=== PATIENT | female | born 1985 ===

== ENCOUNTER 2021-01-22 15:00 | Inpatient (IN) | payer OTHER ==
[2021-01-22 16:13] VITALS: BMI 45.2
[2021-01-22] MEDS ORDERED: ELECTROLYTE-148 SOLN 1,000 ML IV SCH ×2 (16:15→19:00)
[2021-01-22] MEDS ORDERED: LABETALOL HCL 100 MG TABLET (FP) PO ONE (16:20)
[2021-01-22] MEDS ORDERED: BUTORPHANOL TARTRATE 2 MG/ML VIAL IVPB ONE (16:20)
[2021-01-22] MEDS ORDERED: PROMETHAZINE HCL 25 MG/1 ML VIAL IVPB ONE (16:20)
[2021-01-22] MEDS ORDERED: AMPICILLIN - 2 GM in SODIUM CHLORIDE 100 ML IVPB ONE (16:25)
[2021-01-22] MEDS ORDERED: BUTORPHANOL TARTRATE 2 MG/ML VIAL ONE (16:30)
[2021-01-22] MEDS ORDERED: PROMETHAZINE HCL 25 MG/1 ML VIAL ONE (16:30)
[2021-01-22] MEDS ORDERED: LABETALOL HCL 100 MG TABLET (FP) ONE (16:30)
[2021-01-22] MEDS ORDERED: AMPICILLIN SODIUM 2 GM VIAL ONE (16:30)
[2021-01-22 16:37] LABS: BASO % 0.6 % (0-2.0); EOS % 0.1 % (0-4.5); HEMOGLOBIN 12.7 GM/dL (10.7-15.3); LYMPH % 10.2 % (8-40); MCH 30.1 pg (25.7-33.7); MCHC 34.4 g/dl (32.0-36.0); MEAN CELL VOLUME 87.4 fl (80-96); MEAN PLT VOLUME 9.1 fl (7.5-11.1); MONO % 5.1 % (3.8-10.2); PLATELET COUNT 220 10^3/uL (134-434); RBC 4.23 M/mm3 (3.60-5.2); RDW 14.3 % (11.6-15.6); WHITE BLOOD COUNT 12.9 K/mm3 (4.0-10.0)
[2021-01-22 16:42] LABS: INR 0.9 (0.83-1.09); PROTHROMBIN TIME (PATIENT) 10.9 SEC (9.7-13.0)
[2021-01-22 16:45] LABS: ACTIVATED PTT 29.6 SECONDS (25.2-36.5)
[2021-01-22 17:03] LABS: CALCIUM 9.1 mg/dL (8.5-10.1)
[2021-01-22 17:04] LABS: BLOOD UREA NITROGEN 8.2 mg/dL (7-18)
[2021-01-22 17:07] LABS: CREATININE 0.6 mg/dL (0.55-1.3)
[2021-01-22] MEDS: AMPICILLIN - 1 GM in SODIUM CHLORIDE 100 ML IVPB SCH ×2 (17:15→21:00)
[2021-01-22 17:31] LABS: SYPHILIS W/ RPR CONF NON-REACTIVE (NONREACTIVE)
[2021-01-22 18:00] LABS: HIV INTERPRETATION NEGATIVE (NEGATIVE)
[2021-01-22] MEDS ORDERED: OXYTOCIN 30 UNITS in 0.9% NS 30 UNIT/500 ML INFUS.BAG IVPB SCH (19:15)
[2021-01-22] MEDS ORDERED: PCA PUMP NR ONE (19:16)
[2021-01-22] MEDS ORDERED: FENTANYL/BUPIVACAINE/NS/PF - PCEA - 50 ML DISP.SYRIN EP ONE (19:17)
[2021-01-22] MEDS: FENTANYL/BUPIVACAINE/NS/PF - PCEA - 50 ML DISP.SYRIN EP SCH (19:50)
[2021-01-22] MEDS ORDERED: NALOXONE HCL 0.4 MG/ML VIAL IVPUSH PRN (19:57)
[2021-01-22] MEDS ORDERED: OXYTOCIN IVPB ONE (20:05)
[2021-01-22] MEDS ORDERED: NS IVPB ONE (20:05)
[2021-01-22] MEDS ORDERED: AMPICILLIN SODIUM 1 GM VIAL ONE (20:05)
[2021-01-22] MEDS ORDERED: OXYTOCIN 20 UNITS in 0.9% NS 20 UNIT/1,000 ML INFUS.BAG IV ONE ×2 (20:27→23:15)
[2021-01-22] MEDS ORDERED: LIDOCAINE HCL 1% PRESERVATIVE FREE - 30ML VIAL ONE (21:27)
[2021-01-22] MEDS ORDERED: BISACODYL 10 MG SUPP.RECT RC PRN (22:13)
[2021-01-22] MEDS ORDERED: ACETAMINOPHEN 325 MG TABLET (FP) PO PRN (22:13)
[2021-01-22] MEDS ORDERED: WITCH HAZEL 50% (TUCKS) 40 PAD/JAR PAD TP PRN (22:13)
[2021-01-22] MEDS ORDERED: BENZOCAINE 20% 57 GM BOTTLE TP PRN (22:13)
[2021-01-22] MEDS ORDERED: BENZOCAINE 28 GM HEMORRHOIDAL OINTMENT TP PRN (22:13)
[2021-01-22] MEDS ORDERED: METHYLERGONOVINE MALEATE 0.2 MG/1 ML AMP IM PRN (22:13)
[2021-01-22] MEDS ORDERED: oxyCODONE HCL 5 MG TABLET PO PRN (22:13)
[2021-01-22] MEDS ORDERED: OXYTOCIN 20 UNITS in 0.9% NS 20 UNIT/1,000 ML INFUS.BAG IV SCH (22:15)
[2021-01-23] MEDS: AMPICILLIN - 1 GM in SODIUM CHLORIDE 100 ML IVPB SCH (01:10)
[2021-01-23] MEDS: IBUPROFEN 600 MG TABLET (FP) PO PRN ×3 (06:26→22:03)
[2021-01-23 09:45] LABS: BASO % 0.5 % (0-2.0); EOS % 0.4 % (0-4.5); HEMATOCRIT 34.1 % (32.4-45.2); HEMOGLOBIN 11.8 GM/dL (10.7-15.3); LYMPH % 22.6 % (8-40); MCH 30.6 pg (25.7-33.7); MCHC 34.6 g/dl (32.0-36.0); MEAN CELL VOLUME 88.4 fl (80-96); MEAN PLT VOLUME 9.5 fl (7.5-11.1); MONO % 8.5 % (3.8-10.2); PLATELET COUNT 229 10^3/uL (134-434); RBC 3.86 M/mm3 (3.60-5.2); RDW 14.5 % (11.6-15.6); WHITE BLOOD COUNT 15.1 K/mm3 (4.0-10.0)
[2021-01-23] MEDS: PRENATAL VITAMINS W/ FOLIC ACID TABLET (FP) PO SCH (09:46)
[2021-01-23] MEDS: FENTANYL/BUPIVACAINE/NS/PF - PCEA - 50 ML DISP.SYRIN EP SCH (20:19)
[2021-01-23] MEDS ORDERED: SENNOSIDES/DOCUSATE COMBO (SENNA PLUS) TABLET (UD) PO PRN (22:00)
[2021-01-24] MEDS ORDERED: DIPHTH,PERTUSS(ACELL),TET 0.5 ML DISP.SYRIN IM ONE (10:00)
[2021-01-24] MEDS ORDERED: FLU VACC QS2021-22(6MOS UP)/PF 60 MCG/0.5 ML SYRINGE IM ONE (10:00)
[2021-01-24] MEDS: PRENATAL VITAMINS W/ FOLIC ACID TABLET (FP) PO SCH (10:38)
[2021-01-24 10:53] VITALS: BP 113/76; PULSE 90; TEMP 98.8
== END 2021-01-24 12:20 | disposition home or self-care (01) | DRG 560 ==
LOC: JLDR 15:00 → J3W 23:33
PROVIDERS: ADMIT Obstetrics & Gynecology; ATTEND Obstetrics & Gynecology
PROC: 10E0XZZ Delivery of Products of Conception, External Approach (ICD-10-PCS; principal; 2021-01-22)
PROC: 0HQ9XZZ Repair Perineum Skin, External Approach (ICD-10-PCS; 2021-01-22)
DX: O24.420 Gestational diabetes mellitus in childbirth, diet controlled (principal); O10.92 Unspecified pre-existing hypertension complicating childbirth; O70.0 First degree perineal laceration during delivery; Z3A.38 38 weeks gestation of pregnancy; Z37.0 Single live birth
CPT/HCPCS: 36415; 59409; 80048; 85025; 85610; 85730; 86780; 86850; 86900; 86901; 87389; 90686; 90715; C9803; G0008; U0003; U0005